=== PATIENT | female | born 1980 | race Caucasian/White ===

== ENCOUNTER 2021-07-25 17:43 | Inpatient (IN) | payer OTHER, SELFPAY ==
[2021-07-25] MEDS ORDERED: Ondansetron PF 4 MG/2 ML Vial ONE (18:39)
[2021-07-25] MEDS ORDERED: Morphine 4 MG/ML VIAL ONE ×2 (18:39→19:19)
[2021-07-25 18:43] LABS: Hemoglobin 12.6 g/dL (12.0-15.5); Mean Corpuscular HGB CONC 33.6 g/dL (32.0-36.0); Mean Corpuscular Hemoglobin 29.4 pg (27.0-33.0); Mean Corpuscular Volume 87.6 fl (81.6-98.3); Mean Platelet Volume 10.3 fl (7.4-10.4); Platelet Count 427 10x3/uL (150-450); RBC Distribution Width 13.4 % (11.5-14.5); Red Blood Cell (RBC) Count 4.28 10x6/uL (3.90-5.03); White Blood Cell (WBC) Count 21.4 10x3/uL (3.5-10.5)
[2021-07-25 18:49] LABS: BHCG - Serum Negative (NEGATIVE); Pregs Control Background? CLEAR/WHITE (CLR/WHITE); Pregs Control Bar Appear? YES (CONTROL BAR)
[2021-07-25 18:57] LABS: ALT (SGPT) 39 U/L (8-55); AST (SGOT) 40 U/L (5-34); Albumin 4.2 g/dL (3.5-5.0); Alkaline Phosphatase 64 U/L (40-110); Anion Gap 15 mmol/L (10-20); BUN (Urea Nitrogen) 12 mg/dL (7.0-18.7); Bilirubin, Total 0.5 mg/dL (0.2-1.2); Calc. Creatinine Clearance 0 mL/min (70-130); Calcium 9.6 mg/dL (7.8-10.44); Carbon Dioxide 23 mmol/L (22-29); Chloride 100 mmol/L (98-107); Globulin 4.9 g/dL (2.4-3.5); Glucose 108 mg/dL (70-105); Lipase 14 U/L (8-78); Potassium 4.4 mmol/L (3.5-5.1); Protein, Total 9.1 g/dL (6.0-8.3); Sodium 134 mmol/L (136-145)
[2021-07-25 19:14] LABS: Band 2 % (5-11); Eosinophils 1 % (0-10); Lymphocytes 3 % (21-51); Monocytes 7 % (0-10)
[2021-07-25 19:15] LABS: MDiff Complete? YES; Neutrophil 87 % (42-75)
[2021-07-25 19:16] LABS: Large Platelets SLIGHT; Platelet Morphology Comment Appears Adequate; RBC Morphology Normal
[2021-07-25] MEDS ORDERED: Piperacillin/Tazobactam 4.5 GM VIAL ONE (19:29)
[2021-07-25 20:48] LABS: Bilirubin Neg (Negative); Blood, Urine 10 (Negative); Clarity Slightly Cloudy (Clear); Glucose, Urine (Dipstick) Normal (Negative); Ketone, Urine 150 mg/dL (Negative); Leukocyte 100 (Negative); Nitrite Negative (Negative); Protein, Urine (Dipstick) 15 mg/dl (Neg-Trace); Urobilinogen Normal mg/dL (Less than 2)
[2021-07-25 20:55] LABS: Bacteria/HPF 1+ HPF (None Seen); Squamous Epithelial 0-3 HPF (0-3)
[2021-07-25] MEDS ORDERED: Ondansetron PF 4 MG/2 ML Vial IVP PRN (22:14)
[2021-07-25] MEDS ORDERED: Ondansetron ODT 4 MG TAB PO PRN (22:14)
[2021-07-25] MEDS ORDERED: Morphine 4 MG/ML VIAL SLOW IVP PRN (22:23)
[2021-07-25] MEDS ORDERED: Vancomycin 1.5 GRAM/300 ML BAG 1.5 GM in Premix Bag 1 BAG IVPB SCH (22:30)
[2021-07-25] MEDS ORDERED: Piperacillin/Tazobactam 3.375 GM in Sodium Chloride 0.9% 100 ML IVPB SCH (22:30)
[2021-07-25] MEDS ORDERED: Sodium Chloride 0.9% 1,000 ML ONE (22:34)
[2021-07-25] MEDS: Morphine 4 MG/ML VIAL SLOW IVP PRN (22:35)
[2021-07-25] MEDS: Sodium Chloride 0.9% 1,000 ML IV SCH (22:38)
[2021-07-25 22:52] LABS: Magnesium 2.1 mg/dL (1.6-2.6)
[2021-07-25 23:39] LABS: SARS-CoV-2 NAA Rapid Test Not Detected (NotDetected)
[2021-07-26] MEDS ORDERED: diphenhydrAMINE 50 MG/ML VIAL IVP SCH (01:15)
[2021-07-26] MEDS: Piperacillin/Tazobactam 3.375 GM in Sodium Chloride 0.9% 100 ML IVPB SCH ×3 (01:30→16:40)
[2021-07-26 03:30] LABS: Hemoglobin 11.7 g/dL (12.0-15.5); Mean Corpuscular HGB CONC 33.1 g/dL (32.0-36.0); Mean Corpuscular Hemoglobin 29.4 pg (27.0-33.0); Mean Corpuscular Volume 88.7 fl (81.6-98.3); Platelet Count 415 10x3/uL (150-450); RBC Distribution Width 13.5 % (11.5-14.5); Red Blood Cell (RBC) Count 3.98 10x6/uL (3.90-5.03); White Blood Cell (WBC) Count 20.8 10x3/uL (3.5-10.5)
[2021-07-26] MEDS: Morphine 4 MG/ML VIAL SLOW IVP PRN ×3 (04:18→17:51)
[2021-07-26] MEDS: Acetaminophen 325 MG TAB PO PRN ×2 (05:04→20:22)
[2021-07-26 05:32] LABS: Anion Gap 14 mmol/L (10-20); BUN (Urea Nitrogen) 8 mg/dL (7.0-18.7); Calc. Creatinine Clearance 117 mL/min (70-130); Calcium 8.4 mg/dL (7.8-10.44); Carbon Dioxide 20 mmol/L (22-29); Chloride 105 mmol/L (98-107); Glucose 120 mg/dL (70-105); Potassium 3.7 mmol/L (3.5-5.1); Sodium 135 mmol/L (136-145)
[2021-07-26 05:38] LABS: Band 4 % (5-11); Lymphocytes 3 % (21-51); Monocytes 6 % (0-10); Neutrophil 86 % (42-75); Reactive Lymphocytes 1 % (0-10)
[2021-07-26 05:39] LABS: Large Platelets SLIGHT; Platelet Morphology Comment Appears Increased
[2021-07-26 05:40] LABS: MDiff Complete? YES; RBC Morphology Normal
[2021-07-26] MEDS: Sodium Chloride 0.9% 1,000 ML IV SCH ×2 (08:04→14:30)
[2021-07-26] MEDS ORDERED: VANCOMYCIN 1.25 GM/250 ML BAG 1.25 GM in Premix Bag 1 BAG IVPB SCH (09:00)
[2021-07-26] MEDS: Enoxaparin Sodium 40 MG/0.4 ML SYRINGE SC SCH (09:13)
[2021-07-27] MEDS: Sodium Chloride 0.9% 1,000 ML IV SCH ×3 (03:00→18:24)
[2021-07-27] MEDS: Piperacillin/Tazobactam 3.375 GM in Sodium Chloride 0.9% 100 ML IVPB SCH ×3 (06:22→16:12)
[2021-07-27] MEDS: Morphine 4 MG/ML VIAL SLOW IVP PRN (07:40)
[2021-07-27 08:44] LABS: Hemoglobin 10.8 g/dL (12.0-15.5); Mean Corpuscular HGB CONC 32.2 g/dL (32.0-36.0); Mean Corpuscular Hemoglobin 29.3 pg (27.0-33.0); Mean Platelet Volume 10.2 fl (7.4-10.4); Platelet Count 390 10x3/uL (150-450); RBC Distribution Width 13.7 % (11.5-14.5); Red Blood Cell (RBC) Count 3.68 10x6/uL (3.90-5.03); White Blood Cell (WBC) Count 22.5 10x3/uL (3.5-10.5)
[2021-07-27 09:22] LABS: Lymphocytes 3 % (21-51); MDiff Complete? YES; Monocytes 5 % (0-10); Myelocyte 1 % (0-0); Neutrophil 90 % (42-75); Platelet Morphology Comment Appears Adequate; RBC Morphology Normal
[2021-07-27] MEDS: Enoxaparin Sodium 40 MG/0.4 ML SYRINGE SC SCH (11:24)
[2021-07-27] MEDS ORDERED: Bupivacaine PF 0.5% 30 ML VIAL ONE (12:32)
[2021-07-27] MEDS ORDERED: EPINEPHrine 1 MG/ML AMP ONE (12:32)
[2021-07-27] MEDS ORDERED: PROPOFOL 20 ML ONE (12:41)
[2021-07-27] MEDS ORDERED: Ketorolac Tromethamine 30 MG/ML VIAL ONE (12:41)
[2021-07-27] MEDS ORDERED: Lidocaine 2% PF 5 ML VIAL ONE (12:41)
[2021-07-27] MEDS ORDERED: Glycopyrrolate 0.2 MG/ML 5 ML SYRINGE ONE (12:41)
[2021-07-27] MEDS ORDERED: Fentanyl 100 MCG/2 ML VIAL ONE ×2 (12:41→14:10)
[2021-07-27] MEDS ORDERED: Dexamethasone 4 mg/ml Vial ONE (12:41)
[2021-07-27] MEDS ORDERED: Ondansetron PF 4 MG/2 ML Vial ONE (12:41)
[2021-07-27] MEDS ORDERED: Rocuronium Bromide 10 MG/ML (10ML VIAL) ONE (12:42)
[2021-07-27] MEDS ORDERED: PHENYLEPHRINE-NS 100 MCG/ML 10 ML SYRINGE ONE (13:23)
[2021-07-28] MEDS: Piperacillin/Tazobactam 3.375 GM in Sodium Chloride 0.9% 100 ML IVPB SCH ×2 (02:30→08:35)
[2021-07-28] MEDS: Morphine 4 MG/ML VIAL SLOW IVP PRN ×2 (05:21→20:18)
[2021-07-28 05:50] LABS: Hemoglobin 10.7 g/dL (12.0-15.5); Mean Corpuscular HGB CONC 32.3 g/dL (32.0-36.0); Mean Corpuscular Hemoglobin 29.2 pg (27.0-33.0); Mean Corpuscular Volume 90.4 fl (81.6-98.3); Mean Platelet Volume 10.1 fl (7.4-10.4); Platelet Count 414 10x3/uL (150-450); RBC Distribution Width 13.6 % (11.5-14.5); Red Blood Cell (RBC) Count 3.66 10x6/uL (3.90-5.03)
[2021-07-28 07:22] LABS: Band 2 % (5-11); Lymphocytes 7 % (21-51); Monocytes 7 % (0-10)
[2021-07-28 07:24] LABS: Large Platelets SLIGHT; Neutrophil 84 % (42-75); Small Platelets MODERATE
[2021-07-28 07:25] LABS: Platelet Clumps SLIGHT; Platelet Morphology Comment Appears Adequate
[2021-07-28 07:26] LABS: MDiff Complete? YES; RBC Morphology Normal
[2021-07-28] MEDS: Enoxaparin Sodium 40 MG/0.4 ML SYRINGE SC SCH (08:31)
[2021-07-28] MEDS: Sodium Chloride 0.9% 1,000 ML IV SCH (08:31)
[2021-07-28 08:43] LABS: Anion Gap 14 mmol/L (10-20); BUN (Urea Nitrogen) 5 mg/dL (7.0-18.7); Calc. Creatinine Clearance 130 mL/min (70-130); Calcium 8.4 mg/dL (7.8-10.44); Carbon Dioxide 17 mmol/L (22-29); Chloride 110 mmol/L (98-107); Glucose 87 mg/dL (70-105); Sodium 137 mmol/L (136-145)
[2021-07-28 08:49] LABS: Hemoglobin 10.3 g/dL (12.0-15.5); Mean Corpuscular HGB CONC 31.2 g/dL (32.0-36.0); Mean Corpuscular Hemoglobin 28.9 pg (27.0-33.0); Mean Corpuscular Volume 92.4 fl (81.6-98.3); Mean Platelet Volume 10.3 fl (7.4-10.4); Platelet Count 365 10x3/uL (150-450); RBC Distribution Width 14.1 % (11.5-14.5); Red Blood Cell (RBC) Count 3.57 10x6/uL (3.90-5.03)
[2021-07-28] MEDS ORDERED: Meropenem 1 GM in Sodium Chloride 0.9% 100 ML IVPB SCH (09:00)
[2021-07-28 10:27] LABS: Lymphocytes 7 % (21-51); Monocytes 4 % (0-10); Neutrophil 89 % (42-75)
[2021-07-28 10:28] LABS: Platelet Morphology Comment Appears Adequate; RBC Morphology Normal
[2021-07-28 10:46] LABS: MDiff Complete? YES
[2021-07-28] MEDS: Meropenem 1 GM in Sodium Chloride 0.9% 100 ML IVPB SCH (17:54)
[2021-07-29] MEDS: Meropenem 1 GM in Sodium Chloride 0.9% 100 ML IVPB SCH ×3 (01:16→17:30)
[2021-07-29] MEDS: Sodium Chloride 0.9% 1,000 ML IV SCH ×3 (01:16→20:10)
[2021-07-29 03:48] LABS: #Basophils 0.1 10x3/uL (0.0-0.2); #Eosinphils 0.1 10x3/uL (0.0-0.5); #Monocytes 1.2 10x3/uL (0.0-1.1); #Neutrophils 12.5 10x3/uL (1.5-8.4); %Basophils 0.4 % (0.0-2.0); %Eosinophils 0.7 % (0.0-6.0); %Lymphocytes 13.2 % (18.0-47.0); %Monocytes 7.1 % (0.0-10.0); %Neutrophils 77.6 % (40.0-75.0); Hemoglobin 10.8 g/dL (12.0-15.5); Mean Corpuscular Hemoglobin 28.7 pg (27.0-33.0); Mean Corpuscular Volume 89.6 fl (81.6-98.3); Mean Platelet Volume 10.2 fl (7.4-10.4); Platelet Count 482 10x3/uL (150-450); RBC Distribution Width 13.6 % (11.5-14.5); Red Blood Cell (RBC) Count 3.76 10x6/uL (3.90-5.03); White Blood Cell (WBC) Count 16.2 10x3/uL (3.5-10.5)
[2021-07-29 03:57] LABS: Anion Gap 13 mmol/L (10-20); BUN (Urea Nitrogen) 4 mg/dL (7.0-18.7); Calc. Creatinine Clearance 126 mL/min (70-130); Calcium 8.2 mg/dL (7.8-10.44); Carbon Dioxide 21 mmol/L (22-29); Chloride 108 mmol/L (98-107); Glucose 84 mg/dL (70-105); Potassium 3.6 mmol/L (3.5-5.1); Sodium 138 mmol/L (136-145)
[2021-07-29] MEDS: Enoxaparin Sodium 40 MG/0.4 ML SYRINGE SC SCH (10:43)
[2021-07-29] MEDS: Morphine 4 MG/ML VIAL SLOW IVP PRN (18:10)
[2021-07-29 20:13] VITALS: BMI 31.6
[2021-07-30] MEDS: Meropenem 1 GM in Sodium Chloride 0.9% 100 ML IVPB SCH ×3 (00:45→17:54)
[2021-07-30] MEDS: Sodium Chloride 0.9% 1,000 ML IV SCH (00:55)
[2021-07-30 04:02] LABS: #Basophils 0.1 10x3/uL (0.0-0.2); #Eosinphils 0.2 10x3/uL (0.0-0.5); #Monocytes 1.1 10x3/uL (0.0-1.1); #Neutrophils 8.1 10x3/uL (1.5-8.4); %Basophils 0.9 % (0.0-2.0); %Eosinophils 2.1 % (0.0-6.0); %Monocytes 9.8 % (0.0-10.0); %Neutrophils 70.1 % (40.0-75.0); Hemoglobin 11.7 g/dL (12.0-15.5); Mean Corpuscular HGB CONC 32.5 g/dL (32.0-36.0); Mean Corpuscular Hemoglobin 28.8 pg (27.0-33.0); Mean Corpuscular Volume 88.7 fl (81.6-98.3); Platelet Count 546 10x3/uL (150-450); RBC Distribution Width 13.3 % (11.5-14.5); Red Blood Cell (RBC) Count 4.06 10x6/uL (3.90-5.03); White Blood Cell (WBC) Count 11.6 10x3/uL (3.5-10.5)
[2021-07-30 04:07] LABS: Anion Gap 15 mmol/L (10-20); BUN (Urea Nitrogen) 4 mg/dL (7.0-18.7); Calc. Creatinine Clearance 129 mL/min (70-130); Calcium 8.7 mg/dL (7.8-10.44); Carbon Dioxide 20 mmol/L (22-29); Chloride 106 mmol/L (98-107); Glucose 81 mg/dL (70-105); Potassium 3.7 mmol/L (3.5-5.1); Sodium 137 mmol/L (136-145)
[2021-07-30 06:32] LABS: Reference Lab Name LABCORP
[2021-07-30 06:38] LABS: Ref Lab Test Ordered CHLAM CULTURE
[2021-07-30] MEDS: Enoxaparin Sodium 40 MG/0.4 ML SYRINGE SC SCH (10:07)
[2021-07-30] MEDS: Morphine 4 MG/ML VIAL SLOW IVP PRN (17:56)
[2021-07-30] MEDS ORDERED: Guaifenesin DM 100-10/5 ML UDCUP PO PRN (18:10)
[2021-07-31] MEDS: Meropenem 1 GM in Sodium Chloride 0.9% 100 ML IVPB SCH ×2 (02:01→09:22)
[2021-07-31] MEDS ORDERED: Sodium Chloride 0.9% 100 ML ONE (02:02)
[2021-07-31] MEDS ORDERED: Meropenem 1 GM VIAL ONE (02:02)
[2021-07-31] MEDS: Morphine 4 MG/ML VIAL SLOW IVP PRN (06:09)
[2021-07-31] MEDS: Enoxaparin Sodium 40 MG/0.4 ML SYRINGE SC SCH (09:22)
[2021-07-31 12:35] VITALS: BP 104/75; TEMP 97
[2021-07-31 14:13] LABS: Fungus Stain Final report (.)
== END 2021-07-31 15:55 | disposition home or self-care (01) | DRG 356 ==
LOC: CSHERS 17:43 → CSHTELE 20:49
PROVIDERS: ADMIT Family Medicine; ATTEND Physician Assistant
PROC: 0W9G4ZZ Drainage of Peritoneal Cavity, Percutaneous Endoscopic Approach (ICD-10-PCS; principal; 2021-07-27)
DX: K57.20 Diverticulitis of large intestine with perforation and abscess without bleeding (principal); A41.9 Sepsis, unspecified organism; K65.1 Peritoneal abscess; Z20.822 Contact with and (suspected) exposure to COVID-19; D25.9 Leiomyoma of uterus, unspecified; Z88.1 Allergy status to other antibiotic agents; Z82.49 Family history of ischemic heart disease and other diseases of the circulatory system
CPT/HCPCS: 36415; 74177; 80048; 80053; 81003; 81015; 83605; 83690; 83735; 84703; 85025; 87040; 87070; 87077; 87102; 87186; 87205; 87206; 96361; 96365; 96375; 96376; J0171; J1100; J1200; J1650; J1885; J2001; J2185; J2270; J2405; J2543; J2704; J3010; J3370; J3490; J7050; Q0162; S0020; U0002

== ENCOUNTER 2023-10-10 18:17 | Observation (INO) | payer SELFPAY ==
[~2023-10-10 18:17] MED LIST: Iopamidol 300 61% 100 ML VIAL FS ONE
[2023-10-10] MEDS ORDERED: Ketorolac Tromethamine 30 MG (1 mL) VIAL ONE (19:15)
[2023-10-10 19:31] LABS: #Basophils 0.1 10x3/uL (0.0-0.2); #Eosinphils 0.1 10x3/uL (0.0-0.5); #Monocytes 1.3 10x3/uL (0.0-1.1); #Neutrophils 9.8 10x3/uL (1.5-8.4); %Basophils 0.6 % (0.0-2.0); %Eosinophils 0.7 % (0.0-6.0); %Lymphocytes 14.8 % (18.0-47.0); %Monocytes 9.7 % (0.0-10.0); %Neutrophils 73.7 % (40.0-75.0); Hematocrit 40.5 % (34.9-44.5); Hemoglobin 13.3 g/dL (12.0-15.5); Mean Corpuscular HGB CONC 32.8 g/dL (32.0-36.0); Mean Corpuscular Hemoglobin 28.2 pg (27.0-33.0); Mean Platelet Volume 9.5 fl (7.4-10.4); Platelet Count 502 10x3/uL (150-450); RBC Distribution Width 15.1 % (11.5-14.5); Red Blood Cell (RBC) Count 4.71 10x6/uL (3.90-5.03); White Blood Cell (WBC) Count 13.2 10x3/uL (3.5-10.5)
[2023-10-10 19:40] LABS: ALT (SGPT) 13 U/L (8-55); AST (SGOT) 19 U/L (5-34); Albumin 4.1 g/dL (3.5-5.0); Alkaline Phosphatase 46 U/L (40-110); Anion Gap 14 mmol/L (10-20); BUN (Urea Nitrogen) 11 mg/dL (7.0-18.7); Bilirubin, Total 0.3 mg/dL (0.2-1.2); Calc. Creatinine Clearance 0 mL/min (70-130); Calcium 9.1 mg/dL (7.8-10.44); Carbon Dioxide 22 mmol/L (22-29); Chloride 104 mmol/L (98-107); Estimated GFR 93; Globulin 4.5 g/dL (2.4-3.5); Glucose 109 mg/dL (70-105); Lipase 32 U/L (8-78); Protein, Total 8.6 g/dL (6.0-8.3); Sodium 136 mmol/L (136-145)
[2023-10-10 19:55] LABS: BHCG - Serum Negative (NEGATIVE); Pregs Control Background? CLEAR/WHITE (CLR/WHITE); Pregs Control Bar Appear? YES (CONTROL BAR)
[2023-10-10 21:14] LABS: Bilirubin Neg (Negative); Blood, Urine 10 (Negative); Clarity Slightly Cloudy (Clear); Glucose, Urine (Dipstick) Normal (Negative); Ketone, Urine Negative (Negative); Leukocyte Negative (Negative); Nitrite Negative (Negative); Protein, Urine (Dipstick) 15 mg/dl (Neg-Trace); Specific Gravity, Urine 1.015 (1.005-1.030); Urobilinogen Normal mg/dL (Less than 2)
[2023-10-10 21:19] LABS: Bacteria/HPF 1+ HPF (None Seen); CAUTI Indications for Culture Pelvic or flank pain; RBC/HPF 0-3 HPF (0-3); WBC/HPF 0-3 HPF (0-3)
[2023-10-10 21:20] LABS: Urine Culture Reflex No No
[2023-10-10] MEDS ORDERED: Piperacillin/Tazobactam 3.375 GM VIAL ONE (22:12)
[2023-10-11 00:47] VITALS: BMI 29.2
[2023-10-11] MEDS: Sodium Chloride 0.9% 1,000 ML IV SCH (01:45)
[2023-10-11] MEDS: Piperacillin/Tazobactam 3.375 GM in Sodium Chloride 0.9% 100 ML IVPB SCH ×2 (02:22→08:54)
[2023-10-11] MEDS: Morphine 2 MG/ML VIAL SLOW IVP PRN (08:20)
[2023-10-11] MEDS ORDERED: hydrALAZINE 20 MG/ML VIAL SLOW IVP PRN (08:25)
[2023-10-11] MEDS ORDERED: Ipratropium/Albuterol 3 ML NEB NEB PRN (08:25)
[2023-10-11] MEDS ORDERED: Acetaminophen 325 MG TAB PO PRN (08:25)
[2023-10-11] MEDS ORDERED: Ondansetron PF 4 MG/2 ML Vial IVP PRN (08:25)
[2023-10-11] MEDS: Lactated Ringer's 1,000 ML IV SCH (08:54)
[2023-10-11] MEDS: Famotidine 20 MG TAB PO SCH (08:54)
[2023-10-11] MEDS ORDERED: Famotidine/PF 20 mg/2ml Vial SLOW IVP PRN (09:00)
[2023-10-11 09:02] LABS: #Basophils 0.1 10x3/uL (0.0-0.2); #Eosinphils 0.1 10x3/uL (0.0-0.5); #Monocytes 0.9 10x3/uL (0.0-1.1); #Neutrophils 7.7 10x3/uL (1.5-8.4); %Basophils 0.6 % (0.0-2.0); %Eosinophils 0.8 % (0.0-6.0); %Lymphocytes 14.5 % (18.0-47.0); %Monocytes 8.7 % (0.0-10.0); Hematocrit 36.6 % (34.9-44.5); Hemoglobin 11.7 g/dL (12.0-15.5); Mean Corpuscular Hemoglobin 28.1 pg (27.0-33.0); Mean Platelet Volume 9.7 fl (7.4-10.4); Platelet Count 457 10x3/uL (150-450); RBC Distribution Width 15.4 % (11.5-14.5); Red Blood Cell (RBC) Count 4.16 10x6/uL (3.90-5.03); White Blood Cell (WBC) Count 10.2 10x3/uL (3.5-10.5)
[2023-10-11] MEDS: Enoxaparin 30 MG (0.3 mL) SYRINGE SC SCH (20:32)
[2023-10-12] MEDS: HYDROcodone/Acetaminophen 10/325 mg Tablet PO PRN (00:48)
[2023-10-12 03:38] LABS: #Basophils 0.1 10x3/uL (0.0-0.2); #Eosinphils 0.1 10x3/uL (0.0-0.5); #Monocytes 0.6 10x3/uL (0.0-1.1); #Neutrophils 4.8 10x3/uL (1.5-8.4); %Basophils 0.6 % (0.0-2.0); %Eosinophils 1.6 % (0.0-6.0); %Lymphocytes 31.2 % (18.0-47.0); %Monocytes 7.2 % (0.0-10.0); %Neutrophils 58.9 % (40.0-75.0); Hematocrit 33.7 % (34.9-44.5); Hemoglobin 11.2 g/dL (12.0-15.5); Mean Corpuscular HGB CONC 33.2 g/dL (32.0-36.0); Mean Corpuscular Hemoglobin 29.2 pg (27.0-33.0); Platelet Count 433 10x3/uL (150-450); Red Blood Cell (RBC) Count 3.83 10x6/uL (3.90-5.03); White Blood Cell (WBC) Count 8.1 10x3/uL (3.5-10.5)
[2023-10-12 04:08] LABS: Anion Gap 11 mmol/L (10-20); BUN (Urea Nitrogen) 5 mg/dL (7.0-18.7); Calc. Creatinine Clearance 107 mL/min (70-130); Calcium 8.1 mg/dL (7.8-10.44); Carbon Dioxide 21 mmol/L (22-29); Chloride 108 mmol/L (98-107); Estimated GFR 106; Glucose 84 mg/dL (70-105); Potassium 3.6 mmol/L (3.5-5.1); Sodium 136 mmol/L (136-145)
[2023-10-12] MEDS: Polyethylene Glycol 3350 17 GM Packet PO SCH (15:47)
[2023-10-12] MEDS: Amoxicillin/Potassium Clav 875 MG TAB PO SCH (20:25)
[2023-10-12] MEDS: Enoxaparin 40 MG (0.4 mL) SYRINGE SC SCH (20:26)
[2023-10-13] MEDS: Polyethylene Glycol 3350 17 GM Packet PO SCH (08:46)
[2023-10-13 12:47] VITALS: BP 144/85; TEMP 98
== END 2023-10-13 15:10 | disposition home or self-care (01) ==
LOC: CSHERS 18:17 → CSHTELE 22:31
PROVIDERS: ADMIT Surgery; ATTEND Surgery
DX: K56.600 Partial intestinal obstruction, unspecified as to cause (principal); Z79.899 Other long term (current) drug therapy; Z88.1 Allergy status to other antibiotic agents
CPT/HCPCS: 36415; 74177; 80048; 80053; 81001; 83605; 83690; 84703; 85025; 87040; 96365; 96372; 96375; 96376; G0378; J1650; J1885; J2272; J2543; J3490; J7050; J7120; Q9967